=== PATIENT | male | born 1955 | race Caucasian/White ===

== ENCOUNTER 2019-08-29 00:24 | Emergency (ER) | payer BC, OTHER ==
[2019-08-29] MEDS ORDERED: Sodium Chloride 0.9% 10 ML Syringe FLUSH PRN (00:41)
[2019-08-29] MEDS ORDERED: HYDROmorphone 0.5 MG/0.5 ML Syringe IVPUSH ONE ×2 (00:51→04:57)
[2019-08-29] MEDS ORDERED: Ondansetron 4 MG/2 ML SDV IVPUSH ONE (00:51)
[2019-08-29] MEDS ORDERED: Sodium Chloride 0.9% 1,000 ML IV SCH (01:00)
--- NOTE | 2019-08-29 01:38 | EDM.PDOC ---
ED HPI GENERAL MEDICAL PROBLEM - General Chief Complaint: Abdominal Pain Stated Complaint: ABDOMINAL PAIN Time Seen by Provider: 08/29/19 00:39 Source of Information: Reports: Patient, RN Notes Reviewed - History of Present Illness INITIAL COMMENTS - FREE TEXT/NARRATIVE: 63-year-old male comes in with abdominal pain. This started after eating a normal type dinner not too long before that. He had been feeling fine all day earlier today. The pain is epigastric and upper midabdomen with frequent spasms and cramping without radiation. Does have nausea but so far there has been no vomiting. There has been no diarrhea. He believes he did have a normal BM this past morning as usual. No chest pain or difficulty breathing, no fever or chills. He states he did have one prior abdominal surgery about 50 years ago for what sounds like an intussusception causing bowel obstruction. Surgery was done locally here in [place] at the [facility]. He does still have his appendix and gallbladder. Epigastric Pain Score (Numeric/FACES): 4 - Related Data Allergies Allergy/AdvReac Type Severity Reaction Status Date / Time No Known Allergies Allergy Verified 08/29/19 00:34 Home Meds: Home Meds Levothyroxine 1 tab PO DAILY 08/29/19 [History] Past Medical History Endocrine/Metabolic History: Reports: Hypothyroidism - Past Surgical History GI Surgical History: Reports: Other (See Below) Other GI Surgeries/Procedures: bowel obstruction Social & Family History - Tobacco Use Smoking Status *Q: Never Smoker Second Hand Smoke Exposure: No - Caffeine Use Caffeine Use: Reports: Coffee - Recreational Drug Use Recreational Drug Use: No ED ROS GENERAL - Review of Systems Review Of Systems: See Below Constitutional: Denies: Fever, Chills, Diaphoresis HEENT: Reports: No Symptoms Respiratory: Reports: No Symptoms Cardiovascular: Reports: No Symptoms GI/Abdominal: Reports: Abdominal Pain, Nausea. Denies: Diarrhea, Hematochezia, Melena, Vomiting : Reports: Dysuria (mild) Musculoskeletal: Denies: Back Pain Skin: Reports: No Symptoms Neurological: Reports: No Symptoms ED EXAM, GI/ABD - Physical Exam Exam: See Below General Appearance: Alert, Moderate Distress Throat/Mouth: Normal Inspection, Normal Oropharynx Head: Atraumatic Neck: Supple Respiratory/Chest: No Respiratory Distress, Lungs Clear, Normal Breath Sounds Cardiovascular: Regular Rate, Rhythm GI/Abdominal Exam: Soft, Tender (moderate tenderness mid abd and upper mid ab) Extremities: Normal Inspection, Normal Range of Motion Neurological: Alert, Oriented, No Motor/Sensory Deficits Skin Exam: Warm, Dry, Normal Color Course - Vital Signs Last Recorded V/S: Last Vital Signs Temp 97.7 F 08/29/19 00:33 Pulse 74 08/29/19 00:33 Resp 16 08/29/19 00:33 BP 131/73 08/29/19 00:33 Pulse Ox 98 08/29/19 00:33 - Orders/Labs/Meds Orders: Active Orders 24 hr Category Date Time Status Peripheral IV Care [RC] . DIRECTED Care 08/29/19 00:41 Active Abdomen 2V AP Flat Upright [CR] Stat Exams 08/29/19 01:26 Taken Abdomen Pelvis w Cont [CT] Stat Exams 08/29/19 03:13 Taken Peripheral IV Insertion Adult [OM.PC] Stat Oth 08/29/19 00:41 Ordered Labs: Laboratory Tests 08/29/19 08/29/19 08/29/19 Range/Units 00:30 00:30 00:30 WBC 11.33 H (4.23-9.07) K/mm3 RBC 5.73 (4.63-6.08) M/mm3 Hgb 17.1 (13.7-17.5) gm/dl Hct 50.9 (40.1-51.0) % MCV 88.8 (79.0-92.2) fl MCH 29.8 (25.7-32.2) pg MCHC 33.6 (32.2-35.5) g/dl RDW Std Deviation 45.4 H (35.1-43.9) fL Plt Count 289 (163-337) K/mm3 MPV 9.4 (9.4-12.3) fl Neut % (Auto) 79.8 H (34.0-67.9) % Lymph % (Auto) 11.9 L (21.8-53.1) % [place] % (Auto) 6.7 (5.3-12.2) % Eos % (Auto) 1.2 (0.8-7.0) Baso % (Auto) 0.2 (0.1-1.2) % Neut # (Auto) 9.04 H (1.78-5.38) K/mm3 Lymph # (Auto) 1.35 (1.32-3.57) K/mm3 [place] # (Auto) 0.76 (0.30-0.82) K/mm3 Eos # (Auto) 0.14 (0.04-0.54) K/mm3 Baso # (Auto) 0.02 (0.01-0.08) K/mm3 Manual Slide Review Normal smear Sodium 140 (136-145) mEq/L Potassium 4.0 (3.5-5.1) mEq/L Chloride 102 (98-107) mEq/L Carbon Dioxide 27 (21-32) mEq/L Anion Gap 15.0 (5-15) BUN 20 H (7-18) mg/dL Creatinine 1.2 (0.7-1.3) mg/dL Est Cr Clr Drug Dosing 72.31 mL/min Estimated GFR (MDRD) > 60 (>60) mL/min BUN/Creatinine Ratio 16.7 (14-18) Glucose 122 H (80-115) mg/dL Calcium 8.8 (8.5-10.1) mg/dL Total Bilirubin 0.6 (0.2-1.0) mg/dL AST 19 (15-37) U/L ALT 37 (16-63) U/L Alkaline Phosphatase 103 (46-116) U/L C-Reactive Protein 0.5 (<1.0) mg/dL Total Protein 7.3 (6.4-8.2) g/dl Albumin 4.0 (3.4-5.0) g/dl Globulin 3.3 gm/dL Albumin/Globulin Ratio 1.2 (1-2) Lipase 101 (73-393) U/L Urine Color (Yellow) Urine Appearance (Clear) Urine pH (5.0-8.0) Ur Specific [place] (1.005-1.030) Urine Protein (Negative) Urine Glucose (UA) (Negative) Urine Ketones (Negative) Urine Occult Blood (Negative) Urine Nitrite (Negative) Urine Bilirubin (Negative) Urine Urobilinogen (0.2-1.0) Ur Leukocyte Esterase (Negative) Urine RBC (0-5) /hpf Urine WBC (0-5) /hpf Ur Squamous Epith Cells (0-5) /hpf Urine Bacteria (FEW) /hpf Urine Mucus (FEW) /hpf 03/17/20 Range/Units 01:20 WBC (4.23-9.07) K/mm3 RBC (4.63-6.08) M/mm3 Hgb (13.7-17.5) gm/dl Hct (40.1-51.0) % MCV (79.0-92.2) fl MCH (25.7-32.2) pg MCHC (32.2-35.5) g/dl RDW Std Deviation (35.1-43.9) fL Plt Count (163-337) K/mm3 MPV (9.4-12.3) fl Neut % (Auto) (34.0-67.9) % Lymph % (Auto) (21.8-53.1) % [place] % (Auto) (5.3-12.2) % Eos % (Auto) (0.8-7.0) Baso % (Auto) (0.1-1.2) % Neut # (Auto) (1.78-5.38) K/mm3 Lymph # (Auto) (1.32-3.57) K/mm3 [place] # (Auto) (0.30-0.82) K/mm3 Eos # (Auto) (0.04-0.54) K/mm3 Baso # (Auto) (0.01-0.08) K/mm3 Manual Slide Review Sodium (136-145) mEq/L Potassium (3.5-5.1) mEq/L Chloride (98-107) mEq/L Carbon Dioxide (21-32) mEq/L Anion Gap (5-15) BUN (7-18) mg/dL Creatinine (0.7-1.3) mg/dL Est Cr Clr Drug Dosing mL/min Estimated GFR (MDRD) (>60) mL/min BUN/Creatinine Ratio (14-18) Glucose (80-115) mg/dL Calcium (8.5-10.1) mg/dL Total Bilirubin (0.2-1.0) mg/dL AST (15-37) U/L ALT (16-63) U/L Alkaline Phosphatase (46-116) U/L C-Reactive Protein (<1.0) mg/dL Total Protein (6.4-8.2) g/dl Albumin (3.4-5.0) g/dl Globulin gm/dL Albumin/Globulin Ratio (1-2) Lipase (73-393) U/L Urine Color Yellow (Yellow) Urine Appearance Clear (Clear) Urine pH 8.5 H (5.0-8.0) Ur Specific [place] 1.020 (1.005-1.030) Urine Protein Negative (Negative) Urine Glucose (UA) Negative (Negative) Urine Ketones 1+ H (Negative) Urine Occult Blood Negative (Negative) Urine Nitrite Negative (Negative) Urine Bilirubin Negative (Negative) Urine Urobilinogen 0.2 (0.2-1.0) Ur Leukocyte Esterase Negative (Negative) Urine RBC 0-5 (0-5) /hpf Urine WBC 0-5 (0-5) /hpf Ur Squamous Epith Cells 0-5 (0-5) /hpf Urine Bacteria Rare (FEW) /hpf Urine Mucus Rare (FEW) /hpf Meds: Medications Discontinued Medications Generic Name Dose Route Start Last Admin Trade Name Freq PRN Reason Stop Dose Admin Hydromorphone HCl 0.5 mg 08/29/19 00:51 08/29/19 01:00 Dilaudid IVPUSH 08/29/19 00:52 0.5 mg ONETIME ONE Administration Hydromorphone HCl 0.25 mg 08/29/19 04:57 08/29/19 05:04 Dilaudid IVPUSH 08/29/19 04:58 0.25 mg ONETIME ONE Administration Sodium Chloride 1,000 mls @ 999 mls/hr 08/29/19 01:00 08/29/19 01:02 Normal Saline IV 999 mls/hr ONETIME CHARLEY Administration Dextrose/Lactated Ringer's 1,000 mls @ 150 mls/hr 08/29/19 02:15 08/29/19 02: 10 Dextrose 5%-Lactated Ringers IV 150 mls/hr ASDIRECTED CHARLEY Administration Ondansetron HCl 4 mg 08/29/19 00:51 08/29/19 01:02 Zofran IVPUSH 08/29/19 00:52 4 mg ONETIME ONE Administration Sodium Chloride 10 ml 08/29/19 00:41 08/29/19 01:02 Saline Flush FLUSH 10 ml ASDIRECTED PRN Administration Keep Vein Open - Re-Assessments/Exams Free Text/Narrative Re-Assessment/Exam: 08/29/19 01:24. Flat and upright abd has a few relatively small air fluid levels. I did ask for a [facility] read regarding ileus vs small bowel obstruction and read was nonspecific. Patient does feel tremendously better after 0.5 mg dilaudid, zofran 4 mg IV. We have decided to go ahead and CT abd. 08/29/19 04:55. CT of abd and report of CT also not definitive, compatable with ileus, enteritis but also compatable with "partial early developing small bowel obstruction. Pt continues to feel quite well. No further pain, nausea, has never vomited. He wants to go home. That is reasonable. Return precautions given. Discharge instr. as documented. Departure - Departure Time of Disposition: 05:05 Disposition: Home, Self-Care 01 Condition: Fair Clinical Impression: Abdominal pain Qualifiers: Abdominal location: upper abdomen, unspecified Qualified Code(s): R10.10 - Upper abdominal pain, unspecified - Discharge Information Instructions: Abdominal Pain, Adult Referrals: Mateo Escalante Jr, MD [Primary Care Provider] - Forms: ED Department Discharge Additional Instructions: clear liquids until this afternoon or even evening, than very careful bland diet as tolerated if no further pain. Return to ED if symptoms worsening in any way. Call Dr Escalante's office and ask for Urology referral to get opinion on hypodense lesions visible on CT L kidney. Sepsis Event Note - Evaluation Sepsis Screening Result: No Definite Risk - Focused Exam Vital Signs: Vital Signs Temp Pulse Resp BP Pulse Ox 08/29/19 00:33 97.7 F 74 16 131/73 98 Date Exam was Performed: 08/29/19 Time Exam was Performed: 05:43 - My Orders Last 24 Hours: My Active Orders 08/29/19 00:41 Peripheral IV Care [RC] . DIRECTED Peripheral IV Insertion Adult [OM.PC] Stat 08/29/19 01:26 Abdomen 2V AP Flat Upright [CR] Stat 08/29/19 03:13 Abdomen Pelvis w Cont [CT] Stat - Assessment/Plan Last 24 Hours: My Active Orders 08/29/19 00:41 Peripheral IV Care [RC] . DIRECTED Peripheral IV Insertion Adult [OM.PC] Stat 08/29/19 01:26 Abdomen 2V AP Flat Upright [CR] Stat 08/29/19 03:13 Abdomen Pelvis w Cont [CT] Stat
[2019-08-29] MEDS ORDERED: Dextrose 5%-Lactated Ringers 1,000 ML IV SCH (02:15)
--- NOTE | 2019-08-29 06:52 | CR ---
Abdomen: Supine and upright views of the abdomen were obtained. Comparison: No prior abdominal x-ray. Slightly dilated loops of air-filled bowel are seen within the central abdomen. Air-fluid levels are seen. Difficult to exclude early small bowel obstruction. No free air is seen. No abnormal calcifications or discrete soft tissue abnormality is seen. Joint space narrowing is noted within the right hip. Endplate spurring is noted within the spine. Impression: 1. Slightly abnormal small bowel gas pattern as noted above. 2. Other findings believed to be nonacute. Diagnostic code #3 This report was dictated in MDT I agree with preliminary report from [facility], finalized on 08/29/19, 3:48 AM Central Time
--- NOTE | 2019-08-29 06:59 | CT ---
CT abdomen and pelvis Technique: Multiple axial sections were obtained from above the dome of the diaphragm inferiorly through the pubic symphysis. Intravenous contrast was utilized. Oral contrast has also been given. Comparison: Prior abdominal x-ray performed earlier on the same day (1:24 AM). Findings: Visualized lung bases show nothing acute. Liver contains no focal parenchymal abnormality. Spleen appears within normal limits. Adrenal glands show no nodule. Pancreas is within normal limits. Gallbladder contains no large calcified gallstones. Kidneys show symmetric contrast enhancement without hydronephrosis. Cyst is noted within the lower left kidney measuring approximately 1.1 cm. Aorta shows atherosclerotic calcification which continues into the iliac vessels. No aneurysm is seen. No retroperitoneal adenopathy or mesenteric abnormalities are seen. No pelvic mass or adenopathy is seen. No free fluid is noted. Appendix not seen with certainty. Delayed images show contrast within both distal ureters as well as contrast within the bladder. Bone window settings were reviewed which show mild scattered degenerative change within the spine. Joint space narrowing is seen within both hips, worse on the right side. Mild degenerative sclerosis is also noted within the sacroiliac joints. No acute osseous finding is seen. Impression: 1. Dilated proximal small bowel loops are noted within the upper abdomen. Differential includes an incomplete proximal small bowel obstruction as well as gastroenteritis. 2. No other acute finding is appreciated. Diagnostic code #3 This report was dictated in MDT I agree with preliminary report from [facility], finalized on 08/29/19, 5:39 AM Central Time
== END 2019-08-29 05:25 | disposition home or self-care (01) ==
LOC: JD.ED 00:24
DX: R10.13 Epigastric pain (principal); E03.9 Hypothyroidism, unspecified; Z79.899 Other long term (current) drug therapy
CPT/HCPCS: 36415; 74019; 74177; 80053; 81001; 83690; 85025; 86140; 96361; 96374; 96375; 96376; 99284; J1170; J2405; J7030; J7121